=== PATIENT | female | born 1955 | race Caucasian/White ===

== ENCOUNTER → 2017-06-13 | Outpatient (CLI) | payer OTHER ==
--- NOTE | 2017-06-18 10:51 | RADIOLOGY REPORT PS360 ---
DIG MAMM-SCREEN UNI-LT W/CAD CAD Screening ORDERING PHYSICIAN : Echo Sampson MD PATIENT AGE: 61 years GENDER: Female COMPARISON: Previous mammograms: March 2013, January 2015, INDICATION: Routine screening no hormones no new complaints Surgical history: 1985 right mastectomy. Previous surgical biopsy left breast. Family history. Mother breast cancer age 45. Great aunt breast cancer mid 50s TECHNIQUE: Standard CC and MLO images were obtained left breast. R2 CAD reviewed. CC nipple profile view included FINDINGS: Moderate residual breast density LEFT BREAST: No significant new findings. Density at the medial left breast is similar to prior studies dating back to 2012. No significant new findings left breast. Moderate breast density slight most evident superior breast. IMPRESSION: ...... Stable left mammogram. No new areas concern Follow-up in one year recommended BI-RADS CATEGORY: 1_Negative RECOMMENDED FOLLOWUP: 12M 12 MONTH FOLLOW-UP (A letter has been sent to the patient regarding results of the study.)
== END ==
LOC: RAD 10:30
DX: Z12.31 Encounter for screening mammogram for malignant neoplasm of breast (principal); Z85.3 Personal history of malignant neoplasm of breast
CPT/HCPCS: G0202-LT-52